=== PATIENT | female | born 1985 | race Hispanic/Latino ===

== ENCOUNTER 2023-12-10 19:14 | Emergency (ER) | payer BC ==
--- OUTSIDE RECORDS SUMMARY | 2023-12-10 19:17 | XMS REPORT | Clinical Summary ---
Author Name Unknown Organization [facility] [place] Address [address] [place] [address] Care Team Providers Care Magazine Hand Name Role Phone Ольга Burr MD Primary Care Provider [phone] Chey Del Rosario MD Unavailable Jhoana Gaxiola MD Unavailable [phone] Allergies No known active allergies Medications Medication Sig Dispensed Refills Start Date End Date Status levocetirizine (XYZAL) 5 MG tablet 04/16/2021 Active albuterol (VENTOLIN HFA,PROAIR HFA) 90 mcg/puff inhaler TAKE 2 PUFFS BY MOUTH EVERY 6 HOURS NEEDED FOR WHEEZE OR FOR SHORTNESS OF BREATH 11/30/2021 Active PARoxetine (PAXIL) 40 mg tablet 1 tablet (40 mg) every morning. 10/20/2022 Active Wixela Inhub 250-50 mcg/dose diskus inhaler Inhale 1 puff by mouth. 07/02/2023 Active montelukast (SINGULAIR) 10 mg tablet TAKE 1 TABLET BY MOUTH EVERY DAY IN THE EVENING 02/24/2022 09/27/2023 Discontinued (Therapy completed) acetaminophen (Tylenol Extra Strength) 500 mg tabletIndications :Adenocarcinoma of cervix Take 2 tablets (1,000 mg) by mouth every 6 (six) hours. 60 tablet 04/30/2022 12/12/2022 Discontinued (Therapy completed) ibuprofen (ADVIL,MOTRIN) 800 mg tabletIndications :Adenocarcinoma of cervix Take 1 tablet (800 mg) by mouth every 8 (eight) hours. 30 tablet 04/30/2022 12/12/2022 Discontinued (Therapy completed) senna-docusate (Senna Plus) 8.6 mg-50 mg tabletIndications :Adenocarcinoma of cervix Take 1 tablet by mouth 2 (two) times a day as needed for constipation. 30 tablet 04/30/2022 12/12/2022 Discontinued (Therapy completed) oxyCODONE (Roxicodone) 5 mg immediate release tabletIndications :Adenocarcinoma of cervix Take 1 tablet (5 mg) by mouth every 6 (six) hours as needed for severe pain. 15 tablet 04/30/2022 12/12/2022 Discontinued (Therapy completed) Active Problems Problem Noted Date Diagnosed Date Weight gain 09/27/2023 Other constipation 09/27/2023 Adenocarcinoma of cervix 04/04/2022 Cancer Staging:Clinical:Stage IB1- Signed by Ольга Burr MD on 04/12/2022 Last Assessment & Plan: Reviewed the PET scan from 04/19/2022 and MRI from 05/01/2022 Labs from 04/04/2022 are normal Today she will have a type and screen and urine hCG test POEM phone assessment, asymptomatic COVID testing, lab, and nutrition telephone call, today Today she signed informed consent for surgery RN did preop/ERAS teaching She has not been taking any blood thinners in the last 7 days Overall she feels well and is ready to undergo surgery We will call her with surgical pathology results and schedule postop visit in 6 weeks. Body mass index 30+ - obesity 11/24/2020 Encounters Date Type Department Care Team Description 09/27/2023 10:00 AM CDT Office Visit [facility] [address] [place] [address], 6th [place] [address] Ольга Burr MD Mathew, Boby, APRN Weight gain (Primary Dx); Adenocarcinoma of cervix; Other constipation 09/27/2023 Travel 06/12/2023 2:30 PM POLLUTION CONTROL TECHNICIAN Office Visit [facility] [address] [place] [address], 6th [place] [address] Ольга Burr MD Mathew, Boby, APRN Adenocarcinoma of cervix 06/12/2023 1:30 PM POLLUTION CONTROL TECHNICIAN Ancillary Procedure Diagnostic Center [facility], 2nd [place] [address] Chas Hewitt APRN Adenocarcinoma of cervix 06/12/2023 Travel 12/12/2022 3:00 PM CDT Follow-Up [facility] Center [address] [place] [address], 6th [place] [address] Ольга Burr MD Mathew, Boby, APRN Adenocarcinoma of cervix 12/12/2022 Travel after 12/10/2022 Surgical History Surgery Date Site/Laterality Comments SLEEVE GASTROPLASTY AUGMENTATION MAMMAPLASTY W/PROSTHETIC IMPLANT TN RAD ABDL HYSTERECTOMY W/BI PELVIC LMPHADENECTOMY 04/28/2022 Abdomen/Bilateral Procedure: RADICAL ABDOMINAL HYSTERECTOMY, WITH PELVIC LYMPHADENECTOMY W/ REMOVAL OF TUBE(S); Surgeon: Ольга Burr MD; Location: MAIN OR; Service: CARE MANAGER - GYNECOLOGIC ONCOLOGY TN INJ RADIOACTIVE TRACER FOR ID OF SENTINEL NODE 04/28/2022 Bilateral Procedure: ICG INJECTION FOR SENTINEL NODE BIOPSY; Surgeon: Ольга Burr MD; Location: MAIN OR; Service: CARE MANAGER - GYNECOLOGIC ONCOLOGY Medical History Medical History Date Comments Depressive disorder 2000 Anxiety 2000 Other seasonal allergic rhinitis Family History Medical History Relation Name Comments Cancer Neg Hx Social History Tobacco Use Types Packs/Day Years Used Date Smoking Tobacco: Never Smokeless Tobacco: Never Tobacco Cessation:Counseling Given: Not Answered Alcohol Use Standard Drinks/Week Comments Not Currently 0 (1 standard drink = 0.6 oz pur e alcohol) Sex and Gender Information Value Date Recorded Sex Assigned at Female 03/21/2022 9:57 AM POLLUTION CONTROL TECHNICIAN Gender Identity Female 03/21/2022 9:57 AM POLLUTION CONTROL TECHNICIAN Sexual Orientation Straight 03/21/2022 9: 57 AM POLLUTION CONTROL TECHNICIAN Job Start Date Occupation Industry Not on file Not on file Not on file Obstetrics History Para Term AB IAB SAB Ectopic Multiple Livin g Live Births 4 3 1 1 Date Outcome GA Total Labor Labor/2nd/3rd Weight Sex Type Anes PTL Tania A1 A5 Name Clin Para Para Para SAB Comments 1 miscarriage Last Filed Vital Signs Vital Sign Reading Time Taken Comments Blood Pressure 120/84 09/27/2023 9:41 AM CDT Pulse 90 09/27/2023 9:41 AM CDT Temperature 36.6 C (97.9 F) 09/27/2023 9:41 AM CD T Respiratory Rate 16 09/27/2023 9:41 AM CDT Oxygen Saturation 98% 09/27/2023 9:41 AM CDT Inhaled Oxygen Concentration - - Weight 86.9 kg (191 lb 9.3 oz) 09/27/2023 9:39 A M CDT Height 156 cm (5' 1.42") 09/27/2023 9:39 AM CDT Body Mass Index 35.71 09/27/2023 9:39 AM CDT Plan of Treatment Upcoming Encounters Date Type Department Care Team (Late st Contact Info) Description 01/31/2024 11:30 AM CDT Office Visit Gynecologic Oncology Center [address] [facility], 6th [place] [address] Ольга Burr MD [address] [place] [address] [email or web address] Health Maintenance Due Date Last Done Comments COVID-19 Vaccine (2022-2 4 season) 2022 04/05/2021, 08/23/2020, 07/31/2020 Influenza Vaccine 12/16/2023 02/09/2023, 01/23/2022, 03/04/2021 Pneumococcal Vaccine: Pediatrics (0 to 5 Years) and At-Risk Patients (6 to 64 Years) Aged Out 09/25/2022 No longer eligible b ased on patient's age to complete this topic Procedures Procedure Name Priority Date/Time Associated Diagnosis Comments CYTOLOGY CARE MANAGER INTERPRETATION Routine 06/12/2023 3:05 PM POLLUTION CONTROL TECHNICIAN Adenocarcinoma of cervix XR CHEST 2 VW Routine 06/12/2023 1:47 PM POLLUTION CONTROL TECHNICIAN Adenocarcinoma of cervix after 12/10/2022 Results * Cytology CARE MANAGER Interpretation (06/12/2023 3:05 PM POLLUTION CONTROL TECHNICIAN) Gross Description 1 ThinPrep vial received 06/14/2023 2:37 PM POLLUTION CONTROL TECHNICIAN [facility] Specimen Information Vagina, ThinPrep, Liquid Based Preparation, Swab, 06/14/2023 2:37 PM POLLUTION CONTROL TECHNICIAN [facility] Specimen Adequacy Satisfactory for evaluation 06/14/2023 2:37 PM POLLUTION CONTROL TECHNICIAN [facility] Diagnosis Negative for intraepithelial lesion or malignancy 06/14/2023 2:37 PM POLLUTION CONTROL TECHNICIAN [facility] Reflex for Bend Up No 06/14/2023 2:37 PM POLLUTION CONTROL TECHNICIAN [facility] Informational Points Cervicovaginal cytology is a screening procedure subject to false negatives and false positives. Results are more reliable when a satisfactory sample is obtained on a regular repetitive basis and should be interpreted together with past and current clinical data. Some tests reported here may have been developed and performance characteristics determined by [facility] Laboratory Medicine. These tests have not been specifically cleared or approved by the U.S. Food and Drug Administration. 06/14/2023 2:37 PM POLLUTION CONTROL TECHNICIAN [facility] Swab (Vagina, ThinPrep, Liquid Based Preparation) Non-blood Collection / Unknown 06/12/2023 3:05 PM POLLUTION CONTROL TECHNICIAN 06/13/2023 3:02 PM POLLUTION CONTROL TECHNICIAN Chas Hewitt APRN LAB CYTOLOGY ORDERAB LES [facility] [address] [place] [id number], [place] * X-ray Chest 2 Views (06/12/2023 1:47 PM POLLUTION CONTROL TECHNICIAN) Anatomical Region Laterality Modality Chest Digital Radiogra phy 06/12/2023 2:01 PM POLLUTION CONTROL TECHNICIAN Impressions 06/12/2023 2:06 PM POLLUTION CONTROL TECHNICIAN There is no acute cardiopulmonary disease and no metastatic disease. ACTIONABLE ITEMS/RECOMMENDATIONS*: None. Narrative 06/12/2023 2:06 PM POLLUTION CONTROL TECHNICIAN FULL RESULT: Examination: XR CHEST 2 VW on 06/12/2023 1:47 PM. Clinical History: Adenocarcinoma of cervix Indication: Baseline Chest X-Ray, COVID-19 Not Suspected Comparison: None Technique: Posteroanterior, lateral and dual-energy radiographs of the chest Findings: Support Apparatus: None. Lungs/Pleura/Mediastinum: The lungs are normal. There is no mediastinal or hilar adenopathy. The cardiac silhouette is normal. There is no pleural effusion or pneumothorax. Other: Bilateral breast implants are present. Procedure Note Darell Johnson MD - 06/12/2023 FULL RESULT: Examination: XR CHEST 2 VW on 06/12/2023 1:47 PM. Clinical History: Adenocarcinoma of cervix Indication: Baseline Chest X-Ray, COVID-19 Not Suspected Comparison: None Technique: Posteroanterior, lateral and dual-energy radiographs of thechest Findings: Support Apparatus: None. Lungs/Pleura/Mediastinum: The lungs are normal. There is no mediastinal orhilar adenopathy. The cardiac silhouette is normal. There is no pleuraleffusion or pneumothorax. Other: Bilateral breast implants are present. IMPRESSION: There is no acute cardiopulmonary disease and no metastatic disease. ACTIONABLE ITEMS/RECOMMENDATIONS*: None. Chas Hewitt ARTHUR IM DIAGNOSTIC IMAGI NG ORDERABLES after 12/10/2022 Advance Directives * Full Code (Latest Code Status on File) Date Activated Date Inactivated Comments 04/28/2022 8:31 PM 04/30/2022 2:54 PM Care Teams Magazine Hand Relationship Specialty Start Date End Date Ольга Burr MD [address] [place] [address] [email or web address] PCP - General Gynecological Oncology 03/23/22 Chey Del Rosario MD [address] [place] [address] [place] [address] PCP - External Follow Up A Obstetrics/Gynecology 03/23/22 Jhoana Gaxiola MD [address] [place], [place] [id number] PCP - External Primary Care Provider 04/26/22
[2023-12-10] MEDS ORDERED: LORazepam 2 MG/ML VIAL ONE (20:09)
[2023-12-10] MEDS ORDERED: ACETAMINOPHEN 325 MG TABLET ONE (20:11)
[2023-12-10] MEDS ORDERED: NA CHLORIDE 0.9% 1,000 ML ONE (20:11)
[2023-12-10 20:44] LABS: Absolute Eosinophils 0.2 K/uL (0-0.5); Absolute Lymphocytes (CBC) 2.3 K/uL (0.7-4.9); Absolute Monocytes 0.7 K/uL (0.1-1.3); Absolute Neutrophil 7.9 K/uL (1.8-8.0); Basophils % 0.4 % (0-1.3); Eosinophils % 1.6 % (0-4.4); Hematocrit 35.1 % (36.0-45.0); Hemoglobin 11.9 g/dL (12.0-15.0); Lymphocytes % 20.4 % (15.3-44.8); MCH 31.3 pg (27.0-35.0); MCV 92.2 fL (80-100); MPV 9.3 fL (7.6-11.3); Neutrophils % 71.6 % (41.7-73.7); Platelets 277 thou/uL (152-406); RBC Red Blood Cell Count 3.81 M/uL (3.86-4.86); Red Cell Distribution Width 13.7 % (12.1-15.2)
[2023-12-10 20:47] LABS: PTT, Activated Partial Thromb 30.5 SECONDS (24.3-36.9); Protime INR 1.07
[2023-12-10 20:48] LABS: Bicarbonate 24 mEq/L (24-29); Potassium 4.2 mEq/L (3.5-4.9); Sodium Level 139 mEq/L (138-146)
[2023-12-10 21:11] LABS: SARS-CoV-2 Antigen CONTROL BLUE LINE VIS/BG OK; SARS-CoV-2 Antigen Rapid Res Negative (Negative)
[2023-12-10 21:43] LABS: Specific Gravity > 1.030 (1.005-1.030)
[2023-12-10 21:45] LABS: Specific Gravity > 1.030 (1.005-1.030); Urine Bacteria <20 /HPF (<20); Urine Bilirubin NEGATIVE (Negative); Urine Blood Negative (Negative); Urine Clarity Extremely Turbid (Clear); Urine Color Yellow (Yellow); Urine Culture Reflex Order REFLEXED; Urine Glucose NEGATIVE (Negative); Urine Ketones TRACE (Negative); Urine Microscopic Reflex YN ORDER UMIC; Urine Mucus 1+ /HPF (None Seen); Urine Nitrite NEGATIVE (Negative); Urine Protein 1+ (Negative); Urine RBC <5 /HPF (None Seen); Urine Urobilinogen 4+ (Over) (Normal); Urine WBC 20-50 /HPF (<5)
[2023-12-10 21:49] LABS: ALT/SGPT 24 U/L (13-56); AST/SGOT 20 U/L (15-37); Albumin 3.5 g/dL (3.4-5.0); Albumin/Globulin Ratio 1.1 (1.1-1.8); BUN Blood Urea Nitrogen 12 mg/dL (7-18); Bilirubin Direct 0.2 mg/dL (0-0.2); Bilirubin Indirect, Calculated 0.6 mg/dL (0.2-0.8); Bilirubin Total 0.8 mg/dL (0.2-1.0); Globulin 3.3 g/dL (2.3-3.5); Glomerular Filtration Rate 73 ml/min (=/>90); Glucose Level 122 mg/dL (74-106); Protein, Total 6.8 g/dL (6.4-8.2)
[2023-12-10 21:54] LABS: Barbiturates NEGATIVE (NEGATIVE); Benzodiazepines NEGATIVE (NEGATIVE); Cocaine NEGATIVE (NEGATIVE); METHAMPHETAM NEGATIVE (NEGATIVE); Methadone NEGATIVE (NEGATIVE); Opiates NEGATIVE (NEGATIVE); Phencyclidine NEGATIVE (NEGATIVE); THC Cannibis POSITIVE (NEGATIVE)
[2023-12-10 21:59] LABS: Alkaline Phosphatase 91 U/L (45-117)
--- NOTE | 2023-12-10 22:10 | ER ---
Nurse's Notes [facility] Name: Anh Corado Age: 38 yrs Sex: Female : 1985 Arrival Date: 12/10/2023 Time: 19:14 Bed 19 Private MD: Diagnosis: Other psychoactive substance abuse, uncomplicated Presentation: 12/09 19:19 Chief complaint: EMS states: reports taking some possible marijuana edibles. muscle ha1 jerking , confused and elevated heart rate. 19:19 Acuity: PATRICIA 2 ha1 19:19 Coronavirus screen: Vaccine status: Patient reports being unvaccinated. Ebola Screen: ha1 No symptoms or risks identified at this time. Initial Sepsis Screen: Does the patient meet any 2 criteria? No. Patient's initial sepsis screen is negative. Does the patient have a suspected source of infection? No. Patient's initial sepsis screen is negative. Risk Assessment: Do you want to hurt yourself or someone else? Patient reports no desire to harm self or others. Onset of symptoms was December 10, 2023. 19:19 Method Of Arrival: EMS: [facility] ha1 Triage Assessment: 19:19 General: Appears uncomfortable, Behavior is anxious, crying, restless. Pain: Denies ha1 pain. Neuro: Level of Consciousness is awake, Oriented to person. Neuro: Reports dizziness. Cardiovascular: Capillary refill < 3 seconds Patient's skin is warm and dry. Pulses are all present. Rhythm is sinus tachycardia. Respiratory: Airway is patent Respiratory effort is even, unlabored, Respiratory pattern is regular, symmetrical. GI: No signs and/or symptoms were reported involving the gastrointestinal system. Abdomen is round non-distended, obese. Derm: Skin is pink, warm \T\ dry. Musculoskeletal: Circulation, motion, and sensation intact. RESTLESS , MUSCLE JERKING. 19:19 : No signs and/or symptoms were reported regarding the genitourinary system. 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 - Infectious Disease History:: Denies. - Social history:: Smoking status: Patient denies any tobacco usage or history of. Screenin:19 [facility] ED Fall Risk Assessment (Adult) History of falling in the last 3 months, ha1 including since admission No falls in past 3 months (0 pts) Confusion or Disorientation Yes (5 pts) Intoxicated or Sedated Yes (3 pts) Impaired Gait No (0 pts) Mobility Assist Device Used No (0 pt) Altered Elimination Yes (1 pt) Score/Fall Risk Level 3 or more points = High Risk Oriented to surroundings, Maintained a safe environment, Educated pt \T\ family on fall prevention, incl call for assistance when getting out of bed, Hourly rounding (assess needs \T\ fall precautionary measures) done. Abuse screen: Denies threats or abuse. Denies injuries from another. Nutritional screening: No deficits noted. Tuberculosis screening: No symptoms or risk factors identified. Assessment: 19:19 Reassessment: SEE TRIAGE ASSESSMENT. ha1 21:00 Reassessment: Patient and/or family updated on plan of care and expected duration. Pain ha1 level reassessed. Patient is alert, oriented x 3, equal unlabored respirations, skin warm/dry/pink. 22:03 Reassessment: Patient and/or family updated on plan of care and expected duration. Pain ha1 level reassessed. Patient is alert, oriented x 3, equal unlabored respirations, skin warm/dry/pink. CARE PROVIDER IN THE ROOM Patient denies pain at this time. Patient states feeling better. Patient states symptoms have improved. 22:35 Reassessment: Patient and/or family updated on plan of care and expected duration. Pain ha1 level reassessed. Patient is alert, oriented x 3, equal unlabored respirations, skin warm/dry/pink. Patient denies pain at this time. Patient states feeling better. Patient states symptoms have improved. Vital Signs: 19:19 BP 136 / 85; Pulse 152; Resp 20 S; Temp 100.8; Pulse Ox 95% on R/A; Weight 89.36 kg; ha1 Height 5 ft. 1 in. ; 21:00 BP 124 / 65; Pulse 118; Resp 19 S; Temp 99.2(O); Pulse Ox 95% on R/A; ha1 22:04 BP 112 / 65; Pulse 105; Resp 17 S; Pulse Ox 99% on R/A; ha1 22:35 BP 117 / 67; Pulse 98; Resp 17 S; Pulse Ox 99% on R/A; ha1 19:19 Body Mass Index 37.22 (89.36 kg, 154.94 cm) ha1 ED Course: 19:18 Patient arrived in ED. kb 19:18 Kimberlee Nieves FNP-C is [facility]. kb 19:18 Igor Griffin MD is Attending Physician. kb 19:19 Maintain EMS IV. Dressing intact. Good blood return noted. Site clean \T\ dry. Gauge \T\ camacho 1 site: 20 g LFA. 19:19 Patient has correct armband on for positive identification. Placed in gown. Bed in low ha1 position. Call light in reach. Side rails up X2. Adult w/ patient. 19:19 Arm band placed on right wrist. ha1 19:59 Calista Colon RN is Primary Nurse. ha1 20:16 Acetaminophen Sent. ha1 20:26 EKG done, by ED staff, reviewed by Kimberlee NEVES. vk 21:37 Triage completed. ha1 22:36 No provider procedures requiring assistance completed. IV discontinued, intact, ha1 bleeding controlled, No redness/swelling at site. Pressure dressing applied. 22:36 Provided Education on: ILLICIT DRUG USE INFORMATION . ha1 Administered Medications: 20:17 Drug: NS 0.9% IV 1000 ml IV at 1000 ml once Route: IV; Rate: 1000 ml; Site: left ha1 forearm; 22:00 Follow up: Response: No adverse reaction; IV Status: Completed infusion; IV Intake: ha1 1000ml 20:17 Drug: Ativan IVP 1 mg IVP once Route: IVP; Site: left forearm; ha1 20:45 Follow up: Response: No adverse reaction; Anxiety decreased ha1 20:17 Drug: Acetaminophen AZ Suppository 650 mg AZ once {Note: given PO.} Route: AZ; ha1 21:30 Follow up: Response: No adverse reaction; Marked relief of symptoms; Temperature is ha1 decreased Medication: 19:19 VIS not applicable for this client. ha1 Intake: 22:00 IV: 1000ml; Total: 1000ml. ha1 Outcome: 22:09 Discharge ordered by . kb 22:36 Discharged to home ambulatory, with family, ha1 22:36 Condition: stable 22:36 Discharge instructions given to patient, family, Instructed on discharge instructions, follow up and referral plans. Demonstrated understanding of instructions, follow-up care, 22:40 Patient left the ED. ha1 Signatures: Kimberlee Nieves FNP-C ATTENDANCE SECRETARY-Calista Dickens RN RN ha1 Saumya Clifford
--- NOTE | 2023-12-10 22:10 | EDPHYS ---
Physician Documentation [facility] Name: Anh Corado Age: 38 yrs Sex: Female : 1985 Arrival Date: 12/10/2023 Time: 19:14 Bed 19 Private MD: ED Physician Igor Griffin HPI: 12/09 23:17 This 38 yrs old Female presents to ER via EMS with complaints of drug kb ingestion. 23:17 Pt is a 38 year old female who presents for tachycardia, tremors and AMS after eating a kb "homemade edible." Pt states she does not know what was in the edible, but started having these symptoms about 10 minutes after ingesting it. States she has never had these before. . 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 - Infectious Disease History:: Denies. - Social history:: Smoking status: Patient denies any tobacco usage or history of. ROS: 22:06 Constitutional: As per HPI kb Exam: 20:32 Constitutional: This is a well developed, well nourished patient who is awake, alert, kb and in no acute distress. Head/Face: Normocephalic, atraumatic. ENT: Moist Mucous membranes Respiratory: Respirations even and unlabored. No increased work of breathing. Talking in full sentences Abdomen/GI: Soft, non-tender. No distention Skin: Warm, dry with normal turgor. Normal color. MS/ Extremity: Pulses equal, no cyanosis. Neurovascular intact. Full, normal range of motion. 20:32 Cardiovascular: Rate: tachycardic, 20:32 ECG was reviewed by the Attending Physician. 22:07 Neuro: Awake and alert, GCS 15, oriented to person, place, time, and situation. Moves kb all extremities. Normal gait. Vital Signs: 19:19 BP 136 / 85; Pulse 152; Resp 20 S; Temp 100.8; Pulse Ox 95% on R/A; Weight 89.36 kg; ha1 Height 5 ft. 1 in. ; 21:00 BP 124 / 65; Pulse 118; Resp 19 S; Temp 99.2(O); Pulse Ox 95% on R/A; ha1 22:04 BP 112 / 65; Pulse 105; Resp 17 S; Pulse Ox 99% on R/A; ha1 22:35 BP 117 / 67; Pulse 98; Resp 17 S; Pulse Ox 99% on R/A; ha1 19:19 Body Mass Index 37.22 (89.36 kg, 154.94 cm) ha1 MDM: 19:18 Patient medically screened. maribeth 22:07 Data reviewed: vital signs, nurses notes. Counseling: I had a detailed discussion with maribeth the patient and/or guardian regarding the historical points, exam findings, and any diagnostic results supporting the discharge/admit diagnosis, lab results, the need for outpatient follow up, a family practitioner, to return to the emergency department if symptoms worsen or persist or if there are any questions or concerns that arise at home. ED course: Upon arrival pt was awake and alert, but not speaking. Pt was having tremors. Pt now awake, alert and oriented. States she is back to normal and wants to go home. Tremors have resolved. Pt has multiple family members in the room. States she will not be eating any more of the edibles. . 23:16 Differential Diagnosis drug abuse, viral infection, abnormal ekg. Historians other than maribeth the Patient: EMS: [facility]. 12/09 19:18 Order name: Acetaminophen; Complete Time: 22:00 kb 12/09 19:18 Order name: Basic Metabolic Panel; Complete Time: 22:00 kb 12/09 19:18 Order name: CBC with Diff; Complete Time: 20:50 kb 12/09 19:18 Order name: ETOH Level; Complete Time: 21:09 kb 12/09 19:18 Order name: Hepatic Function; Complete Time: 22:00 kb 12/09 19:18 Order name: PT-INR; Complete Time: 20:49 kb 12/09 19:18 Order name: Test, Urine; Complete Time: 21:45 kb 12/09 19:18 Order name: Ptt, Activated; Complete Time: 20:49 kb 12/09 19:18 Order name: Salicylate; Complete Time: 21:09 kb 12/09 19:18 Order name: Urinalysis w/ reflexes; Complete Time: 21:56 kb 12/09 19:18 Order name: Urine Drug Screen; Complete Time: 21:56 kb 12/09 20:17 Order name: SARS-COV-2 Antigen Rapid; Complete Time: 21:14 kb 12/09 20:17 Order name: Flu; Complete Time: 21:14 kb 12/09 21:53 Order name: Urine Culture EDAZ 12/09 22:28 Order name: CREATININE WHOLE BLOOD; Complete Time: 23:18 EDMS 12/09 19:18 Order name: EKG - Nurse/Tech; Complete Time: 20:56 kb 12/09 19:18 Order name: IV Saline Lock; Complete Time: 20:16 kb 12/09 19:18 Order name: Labs collected and sent; Complete Time: 20:16 kb 12/09 19:18 Order name: Suicide Screening ([place]); Complete Time: 20:16 kb EC:32 Rate is 137 beats/min. Rhythm is regular. QRS Warren is Normal. RI interval is normal at kb 128 msec. QRS interval is normal at 78 msec. QT interval is normal at 404 msec. Administered Medications: 20:17 Drug: NS 0.9% IV 1000 ml IV at 1000 ml once Route: IV; Rate: 1000 ml; Site: left ha1 forearm; 22:00 Follow up: Response: No adverse reaction; IV Status: Completed infusion; IV Intake: ha1 1000ml 20:17 Drug: Ativan IVP 1 mg IVP once Route: IVP; Site: left forearm; ha1 20:45 Follow up: Response: No adverse reaction; Anxiety decreased ha1 20:17 Drug: Acetaminophen RI Suppository 650 mg RI once {Note: given PO.} Route: RI; ha1 21:30 Follow up: Response: No adverse reaction; Marked relief of symptoms; Temperature is ha1 decreased Disposition Summary: 12/10/23 22:09 Discharge Ordered Notes: Location: Home kb Condition: Stable kb Diagnosis - Other psychoactive substance abuse, uncomplicated kb Followup: kb - With: Emergency Department - When: As needed - Reason: Worsening of condition Followup: kb - With: Private Physician - When: 2 - 3 days - Reason: Recheck today's complaints, Continuance of care, Re-evaluation by your physician Discharge Instructions: - Discharge Summary Sheet kb - Illegal Drug Use Information, Adult kb Forms: - Medication Reconciliation Form kb - Antibiotic Education kb - Prescription Opioid Use kb - Patient Portal Instructions kb - Leadership Thank You Letter kb Signatures: Dispatcher [employer] EDMS Kimberlee Nieves, TRAINING LEAD-C TRAINING LEAD-Ckb Calista Colon, RN RN ha1 Corrections: (The following items were deleted from the chart) 19:19 19:19 ACETAMINOPHEN+C.LAB.BRZ ordered. EDMS EDMS 19:19 19:19 BASIC METABOLIC PANEL+C.LAB.BRZ ordered. EDMS EDMS 19:19 19:19 CBC+H.LAB.BRZ ordered. EDMS EDMS 19:19 19:19 ETHANOL+C.LAB.BRZ ordered. EDMS EDMS 19:19 19:19 HEPATIC FUNCTION+C.LAB.BRZ ordered. EDMS EDMS 19:19 19:19 PROTIME (+INR)+COAG.LAB.BRZ ordered. EDMS EDMS 19:19 19:19 Test, Urine+UC.LAB.BRZ ordered. EDMS EDMS 19:19 19:19 PTT, ACTIVATED+COAG.LAB.BRZ ordered. EDMS EDMS 19:19 19:19 SALICYLATE+C.LAB.BRZ ordered. EDMS EDMS 19:19 19:19 Urinalysis+U.LAB.BRZ ordered. EDMS EDMS 19:19 19:19 URINE DRUG SCREEN+UC.LAB.BRZ ordered. EDMS EDMS
[2023-12-10 23:12] VITALS: O2SAT 95
[2023-12-10 23:14] VITALS: BP 136/85; TEMP 100.8
--- NOTE | 2023-12-11 12:39 | EKG ---
Test Date: 2023-12-10 Test Time: 20:22:12 Tugboat Pilot: ROLANDA MEASUREMENT RESULTS: Intervals: Rate: 137 NH: 128 QRSD: 78 QT: 268 QTc: 404 [place]: P: 30 NH: 128 QRS: 30 T: -13 INTERPRETIVE STATEMENTS: Sinus tachycardia Otherwise normal ECG No previous ECG available for comparison Electronically Signed On 12-11-23 12:38:02 CDT by Bradly Luis
== END 2023-12-10 22:40 | disposition home or self-care (01) ==
LOC: ER 19:14
DX: F19.10 Other psychoactive substance abuse, uncomplicated (principal); Z11.52 Encounter for screening for COVID-19
CPT/HCPCS: 96361; 93005; 87088; 85025; 81001; 87086; 80048; 36415; 81025; 85610; 82565; 80076; 85730; 80307; 87804 ×2; 96374; 99284; 80143; 80179; 82077; 87811; J7030; 87077; 87186